=== PATIENT | male | born 1955 ===

== ENCOUNTER 2024-05-04 14:33 | Outpatient (CLI) | payer MEDICARE, SELFPAY ==
[2024-05-04 15:21] LABS: Chloride 100 mmol/L (98-107); Potassium 3.7 mmoL/L (3.5-5.1); Sodium 135 mmol/L (136-145)
[2024-05-04 15:24] LABS: Anion Gap 9.7 mEq/L (5-15); Blood Urea Nitrogen 27 mg/dl (9-20); Calcium 9.5 mg/dl (8.4-10.2); Carbon Dioxide 29 mmol/L (22.0-30.0); Estimated Glomerular Filt Rate 60 ml/min (>60); GFR (African American) 73 ML/MIN (>60); Glucose 116 mg/dl (74-100)
[2024-05-04 15:52] LABS: Basophils % 0.4 % (0.1-2.0); Eosinophils # 0.3 K/mm3 (0.0-0.4); Hematocrit 39.1 % (42.0-52.0); Hemoglobin 11.5 g/dL (14.1-18.0); Lymphocytes % 13.1 % (10-50); Mean Corpuscular HGB Conc 29.4 g/dL (31.8-35.4); Mean Corpuscular Hemoglobin 24.7 pg (27.0-31.2); Mean Corpuscular Volume 83.9 fl (80-94); Monocytes # 0.7 K/mm3 (0.1-1.0); Monocytes % 8.7 % (1.7-9.3); Neutrophils # 5.7 K/mm3 (1.8-7.8); Neutrophils % 73.3 % (37.0-80.0); Red Blood Count 4.66 M/mm3 (4.60-6.20); Red Cell Distribution Width 18.5 % (11.5-17.5); White Blood Count 7.8 K/mm3 (4.8-10.8)
[2024-05-04 16:53] LABS: Platelet Count 31 K/mm3 (142-424)
== END 2024-05-04 23:59 | disposition home or self-care (01) ==
LOC: LAB.DROPOF 14:37
PROVIDERS: PCP Family Medicine; Visit Provider Family Medicine
DX: I50.30 Unspecified diastolic (congestive) heart failure (principal); N18.6 End stage renal disease; D50.9 Iron deficiency anemia, unspecified; N39.0 Urinary tract infection, site not specified; B96.1 Klebsiella pneumoniae [K. pneumoniae] as the cause of diseases classified elsewhere; B96.20 Unspecified Escherichia coli [E. coli] as the cause of diseases classified elsewhere
CPT/HCPCS: 80048; 85025; 87086; 87088; 87186